=== PATIENT | female | born 1965 | race Caucasian/White ===

== ENCOUNTER 2023-01-07 06:46 | Day surgery (SDC) | payer BC ==
[~2023-01-07] VITALS: Ht 165.1 cm; Wt 55.6 kg
[2023-01-07] MEDS ORDERED: CYCL10 PO (07:13)
[2023-01-07] MEDS ORDERED: HYDROCODONE-AC1 EA19 PO (07:14)
--- NOTE | 2023-01-07 08:39 | NUR ---
01/07/23 0839 Melva Figueroa 20ML OF ROPIVACAINE 0.5% MIXED AND VERIFIED WITH 0.1ML (1MG/ML) OF EPI TO MAKE 20ML OF ROPIVACAINE 0.5% WITH EPI 1:200,000 FOR INJECTION AT OPSITE BY DR MCGUIRE.
[2023-01-07 09:36] VITALS: BP 110/70
--- NOTE | 2023-01-07 10:07 | NUR ---
01/07/23 1007 Gerry Jarrell IV REMOVED INTACT. SITE WNL.
== END 2023-01-07 10:13 | disposition home or self-care (01) ==
LOC: ORSCSDS 06:46
PROVIDERS: Orthopaedic Surgery
PROC: 0RBP0ZZ Excision of Left Wrist Joint, Open Approach (ICD-10-PCS; principal; 2023-01-07 08:00)
PROC: 01S40ZZ Reposition Ulnar Nerve, Open Approach (ICD-10-PCS; principal; 2023-01-07 08:00)
DX: G56.22 Lesion of ulnar nerve, left upper limb (principal); M67.432 Ganglion, left wrist; F17.210 Nicotine dependence, cigarettes, uncomplicated
CPT/HCPCS: J0171; J0690; J1100; J2250; J2371; J2405; J2704; J2795; J3010